=== PATIENT | female | born 1975 | race Caucasian/White ===

== ENCOUNTER 2022-10-23 21:48 | Emergency (ER) | payer OTHER ==
[~2022-10-23] VITALS: Ht 167.6 cm; Wt 61.4 kg
[~2022-10-23 21:48] MED LIST: BACTDSB PO; PROP10TA73 PO
[2022-10-23 21:53] VITALS: BP 111/69
== END 2022-10-23 23:33 | disposition left against medical advice (07) ==
LOC: EMS 22:06
DX: Z53.21 Procedure and treatment not carried out due to patient leaving prior to being seen by health care provider (principal)
CPT/HCPCS: 99281; Z7502